=== PATIENT | male | born 1960 | race Caucasian/White ===

== ENCOUNTER 2019-05-20 17:56 | Emergency (ER) | payer OTHER, MEDICARE ==
[2019-05-20] MEDS ORDERED: DIPHTH,PERTUSS(ACELL),TET 0.5 ML DISP.SYRIN IM ONE ×2 (18:21→19:20)
--- NOTE | 2019-05-20 18:21 | PDOC ---
Rapid Medical Evaluation Time Seen by Provider: 05/20/19 18:19 Medical Evaluation: 05/20/19 18:19 HPI: cut with wood cabinet L UE PE: laceration L arm ORDERS: X-ray and tetanus Discharge Disposition - Diagnosis Laceration - Referrals - Patient Instructions - Post Discharge Activity
[2019-05-20 18:33] VITALS: BP 126/71; PULSE 71; TEMP 97.9; BMI 28.4
--- NOTE | 2019-05-20 19:55 | PDOC ---
History of Present Illness - General Chief Complaint: Laceration Stated Complaint: CUT TO LT ARM Time Seen by Provider: 05/20/19 18:19 - History of Present Illness Initial Comments: 05/20/19 19:41 CHIEF COMPLAINT: laceration HISTORY OF PRESENT ILLNESS: 59 yo M with hx of "high cholesterol" and "cardiac stents" presents to fast track with laceration to L arm. Patient reports he was trying to fix a broken cabinet that his super was not available to help fix , and the cabinet slid down and hit his arm and cut him. He is unsure when his last tetanus shot was but states it was "a long long time ago." No recent travel or sick contacts. PAST MEDICAL HISTORY: Denies past medical history FAMILY HISTORY: Denies SOCIAL HISTORY: Denies tobacco, alcohol, illicit drug use. SURGICAL HISTORY: Denies ALLERGIES: ibuprofen REVIEW OF SYSTEMS General/Constitutional: Denies fever or chills. Denies weakness, weight change. HEENT: Denies change in vision. Denies ear pain or discharge. Denies sore throat. Cardiovascular: Denies chest pain or shortness of breath. Respiratory: Denies cough, wheezing, or hemoptysis. Gastrointestinal: Denies nausea, vomiting, diarrhea or constipation. Denies rectal bleeding. Genitourinary: Denies dysuria, frequency, or change in urination. Musculoskeletal: Denies joint or muscle swelling or pain. Denies neck or back pain. Skin: Laceration to L arm. Neurologic: Denies headache, vertigo, loss of consciousness, or loss of sensation. PHYSICAL EXAM General Appearance: Well-appearing, appropriately dressed. No apparent distress , no intoxication. HEENT: EOMI, PERRLA, normal ENT inspection, normal voice, TMs normal, pharynx normal. No conjunctival pallor. No photophobia, scleral icterus. Neck: Supple. Trachea midline. No tenderness, rigidity, carotid bruit, stridor , lymphadenopathy, or thyromegaly. Respiratory/Chest: Lungs CTAB. No shortness of breath, chest tenderness, respiratory distress, accessory muscle use. No crackles, rales, rhonchi, stridor , wheezing, dullness Cardiovascular: RRR. S1, S2. No JVD, murmur, bradycardia, tachycardia. Vascular Pulses: Dorsalis-Pedis (R): 2+, Dorsalis-Pedis (L): 2+ Gastrointestinal/Abdominal: Normal bowel sounds. Abdomen soft, non-distended. No tenderness or rebound tenderness. No organomegaly, pulsatile mass, guarding , hernia, hepatomegaly, splenomegaly. Lymphatic: No adenopathy, tenderness. Musculoskeletal/Extremities: Flap laceration extending into to hypodermis on L arm, approximately 2 inches distal to left AC. No tendon involvement, full ROM to elbow, wrist, and fingers. Neurovascularly intact. Normal inspection. FROM of all extremities, normal capillary refill. Pelvis Stable. No CVA tenderness. No tenderness to extremities, pedal edema, swelling, erythema or deformity. Integumentary: Appropriate color, dry, warm. No cyanosis, erythema, jaundice or rash Neurologic: electric meter setter II-XII intact. Fully oriented, alert. Appropriate mood/affect. Motor strength 5/5. No appreciable EOM palsy, facial droop or sensory deficit. 05/20/19 19:58 Past History - Past Medical History Allergies/Adverse Reactions: Allergies Allergy/AdvReac Type Severity Reaction Status Date / Time ibuprofen [From Advil] AdvReac Verified 05/20/19 18:22 Home Medications: Ambulatory Orders Aspirin 81 mg PO DAILY 05/20/19 Atorvastatin Calcium 40 mg PO HS 05/20/19 - Suicide/Smoking/Psychosocial Hx Smoking History: Never smoked Hx Alcohol Use: No Drug/Substance Use Hx: No *Physical Exam - Vital Signs Last Vital Signs Temp Pulse Resp BP Pulse Ox 97.9 F 71 18 126/71 99 05/20/19 18:23 05/20/19 18:23 05/20/19 18:23 05/20/19 18:23 05/20/19 18:23 Procedures - Consent Consent obtained: Verbal - Laceration/Wound Repair Left Anterior Arm Wound Length: 2.6 to 5.0 cm Wound Explored: clean Wound's Depth, Shape: flap Irrigated w/ Saline: Yes Betadine Prep: No Anesthesia: 1% Lidocaine w/ Epi Amount of Anesthetic (ccs): 6 Wound Repaired With: Sutures Suture Size/Type: 4:0 Number of Sutures: 7 Layer Closure: No Sterile Dressing Applied: Yes (xeroform, kerlix) ED Treatment Course - Medications Given in the ED: ED Medications Discontinued Medications Generic Name Dose Route Start Last Admin Trade Name Freq PRN Reason Stop Dose Admin Diphtheria/Tetanus/Acell Pertussis 0.5 ml 05/20/19 18:21 05/20/19 19:40 Boostrix - IM 05/20/19 18:22 0.5 ml .ONCE ONE Administration *DC/Admit/Observation/Transfer Diagnosis at time of Disposition: Laceration - Discharge Dispostion Disposition: HOME Condition at time of disposition: Stable Decision to Admit order: No - Referrals Referrals: Rosy Metzger MD [Primary Care Provider] - - Patient Instructions Printed Discharge Instructions: DI for Laceration Repair Additional Instructions: As discussed, please keep area of laceration clean and dry for the next 24-48 hours. Afterwards you may wash with mild soap and water. Return to fast track or your primary care doctor for suture removal in 10-14 days. If you experience any redness, swelling, streaking, warmth, to the site of the cut, or develop fever, nausea, vomiting, or diarrhea, please return to the ER. - Post Discharge Activity
== END 2019-05-20 20:00 | disposition home or self-care (01) ==
LOC: JER 17:56 → JERFT 17:56
PROC: 0HQEXZZ Repair Left Lower Arm Skin, External Approach (ICD-10-PCS; principal; 2019-05-20)
PROC: 3E0234Z Introduction of Serum, Toxoid and Vaccine into Muscle, Percutaneous Approach (ICD-10-PCS; 2019-05-20)
DX: S51.812A Laceration without foreign body of left forearm, initial encounter (principal); W45.8XXA Other foreign body or object entering through skin, initial encounter; Y93.89 Activity, other specified; Y92.9 Unspecified place or not applicable
CPT/HCPCS: 73070-TC-LT-FY; 90715; 99281-25

== ENCOUNTER 2019-06-04 12:24 | Emergency (ER) | payer OTHER, MEDICARE ==
--- NOTE | 2019-06-04 12:35 | PDOC ---
Rapid Medical Evaluation Time Seen by Provider: 06/04/19 12:31 Medical Evaluation: Allergies Allergy/AdvReac Type Severity Reaction Status Date / Time ibuprofen [From Advil] AdvReac Verified 05/20/19 18:22 06/04/19 12:31 Pt presents to have sutures removed on the L arm. Was done here two weeks ago. Denies fevers, or purulent discharge, redness Exam: sutures in place, no overlying infection; however appears to be some contact dermatitis from the tape Orders: Nothing Pt to proceed to the ER for further evaluation Discharge Disposition - Diagnosis Visit for suture removal - Referrals - Patient Instructions - Post Discharge Activity
[2019-06-04 12:41] VITALS: BP 124/75; PULSE 79; TEMP 98; BMI 27.9
--- NOTE | 2019-06-04 12:50 | PDOC ---
Suture Removal/Wound Check HPI - History of Present Illness Chief Complaint: Suture/Staple Removal(Here) Stated Complaint: SUTURE REMOVAL Time Seen by Provider: 06/04/19 12:31 History Source: Yes: Patient Exam Limitations: Yes: No Limitations [facility] Date of Last ED visit: 05/20/19 - Previous ED Treatment Type of procedure performed on last visit: Yes: Laceration Repair Tetanus Immunization: Yes: Given at last ED visit Past History - Past Medical History Allergies/Adverse Reactions: Allergies Allergy/AdvReac Type Severity Reaction Status Date / Time ibuprofen [From Advil] AdvReac Verified 06/04/19 12:35 Home Medications: Ambulatory Orders Aspirin 81 mg PO DAILY 05/20/19 Atorvastatin Calcium 40 mg PO HS 05/20/19 CVA: No COPD: No - Suicide/Smoking/Psychosocial Hx Smoking History: Unknown if ever smoked Have you smoked in the past 12 months: No Information on smoking cessation initiated: No Hx Alcohol Use: No Drug/Substance Use Hx: No Suture Removal/Wound Check PE - Physical Exam Laceration/Wound Check Symptoms: reports: None. denies: Fever, Chills, Redness , Discharge, Bleeding, Numbness Current Severity Level: None Maximum Severity Level: None Location of Laceration/Wound: left: Forearm (laceration with sutures to proximal forearm) *Review of Systems - Review of Systems Able to Perform ROS?: Yes Constitutional: No: Fever, Malaise, Weakness HEENTM: No: Symptoms Reported Respiratory: No: Symptoms reported Cardiac (ROS): No: Symptoms Reported ABD/GI: No: Symptoms Reported : No: Symptoms Reported Musculoskeletal: Yes: Symptoms Reported, See HPI. No: Muscle Pain (left forearm ) Integumentary: Yes: Symptoms Reported, See HPI, Erythema (mild skin erythema from tape placed on skin) Neurological: No: Symptoms reported, Numbness, Paresthesia, Tingling, Weakness All Other Systems: Reviewed and Negative *Physical Exam - Vital Signs Last Vital Signs Temp Pulse Resp BP Pulse Ox 98.0 F 79 16 124/75 100 06/04/19 12:32 06/04/19 12:32 06/04/19 12:32 06/04/19 12:32 06/04/19 12:32 - Physical Exam General Appearance: Yes: Nourished, Appropriately Dressed. No: Apparent Distress HEENT: positive: Normal ENT Inspection Neck: positive: Supple Respiratory/Chest: positive: Normal Breath Sounds. negative: Respiratory Distress, Accessory Muscle Use Cardiovascular: positive: Regular Rhythm, Regular Rate Musculoskeletal: positive: Normal Inspection Extremity: positive: Normal Capillary Refill Integumentary: positive: Normal Color, Other (well healed 5cm stellate laceration to plantar aspect of left proximal forearm with [address] mild urticarial rash around area of tape placement. no erythema to wound site. no evidence of wound infection) Neurologic: positive: Fully Oriented, Alert, Normal Mood/Affect, Normal Response Medical Decision Making - Medical Decision Making 06/04/19 12:55 Patient with no significant past medical history presenting for suture removal status post presenting 2 weeks ago with laceration to left forearm from a cabinet requiring suture placement. Patient last tetanus vaccine given at last ED visit. Denies pain, fever, discharge from wound site and redness to wound. report mild redness from irritation caused by staple placed on skin. Exam significant for 5 cm stellate laceration with [address] No drainage from wound site. No tenderness to wound area. No wound dehiscence or evidence of wound infection. Small area of skin irritations and erythema from area covered with adhesive bandage. Sutures removed with suture removal kit without complication. Bacitracin apply to wound. Patient educated on continuous home wound care. Patient is stable for discharge *DC/Admit/Observation/Transfer Diagnosis at time of Disposition: Visit for suture removal - Discharge Dispostion Disposition: HOME Condition at time of disposition: Stable Decision to Admit order: No - Referrals Referrals: Rosy Metzger MD [Primary Care Provider] - - Patient Instructions Printed Discharge Instructions: DI for Suture Removal Additional Instructions: continue with home neospirin on wound twice a day until fully healed. Follow-up with PCP as needed - Post Discharge Activity
== END 2019-06-04 12:50 | disposition home or self-care (01) ==
LOC: JERFT 12:24
DX: Z48.817 Encounter for surgical aftercare following surgery on the skin and subcutaneous tissue (principal); Z48.02 Encounter for removal of sutures
CPT/HCPCS: 99281-25